=== PATIENT | male | born 1980 | race Caucasian/White ===

== ENCOUNTER 2020-06-03 11:10 | Emergency (ER) | payer BC, OTHER ==
[~2020-06-03 11:10] MED LIST: AMOXICILLIN500 MG PO; AZITHROMYCIN250 MG PO; DECADRON6 MG PO
[2020-06-03] MEDS ORDERED: CYCLOBENZAPRINE10 MG PO (12:51)
== END 2020-06-03 13:33 | disposition home or self-care (01) ==
LOC: ER1 11:10
DX: M79.605 Pain in left leg (principal); E11.9 Type 2 diabetes mellitus without complications; F17.210 Nicotine dependence, cigarettes, uncomplicated; W17.89XA Other fall from one level to another, initial encounter; Y92.009 Unspecified place in unspecified non-institutional (private) residence as the place of occurrence of the external cause
CPT/HCPCS: 72100; 73502; 73552; 96372; 99283; J1885

== ENCOUNTER → 2021-03-19 | Outpatient (CLI) | payer BC, OTHER ==
[~2021-03-19] MED LIST changes: +CYCLOBENZAPRINE10 MG PO
== END ==
LOC: KOH-I 10:41
DX: M51.26 Other intervertebral disc displacement, lumbar region (principal); M51.27 Other intervertebral disc displacement, lumbosacral region; M48.07 Spinal stenosis, lumbosacral region; M25.78 Osteophyte, vertebrae; M47.816 Spondylosis without myelopathy or radiculopathy, lumbar region; M48.061 Spinal stenosis, lumbar region without neurogenic claudication
CPT/HCPCS: 72148